=== PATIENT | male | born 1965 | race Caucasian/White ===

== ENCOUNTER 2020-12-30 09:56 | Inpatient (IN) ==
[2020-12-30 10:54] LABS: Basophils # 0.1 K/mcL (0.0-0.2); Basophils % 0.3 %; Eosinophils % 0.3 %; Hematocrit 50.6 % (37.5-50.1); Hemoglobin 16.2 g/dL (12.9-16.9); Immature Granulocytes % 0.8 % (0-4); Lymphocytes # 1.9 K/mcL (0.6-4.6); Lymphocytes % 13.5 %; Mean Corpuscular Hemoglobin 29.7 pg (28.0-33.3); Mean Corpuscular Volume 92.8 fL (83.0-100.0); Mean Platelet Volume 11.4 fL (9.4-12.4); Monocytes # 0.7 K/mcL (0.0-1.3); Neutrophils # 11.5 K/mcL (1.6-8.9); Platelet Count 257 K/mcL (140-400); Red Blood Count 5.45 M/mcL (4.19-5.50); Red Cell Distribution Width 15.1 % (11.5-14.5); Segmented Neutrophils % 80.1 %; White Blood Count 14.3 K/mcL (4.3-11.1)
[2020-12-30] MEDS ORDERED: Albuterol 2.5 MG/3 ML NEBULIZER IH ONE (11:06)
[2020-12-30] MEDS ORDERED: Ipratropium Neb 0.5 MG NEBULIZER IH ONE (11:07)
[2020-12-30] MEDS ORDERED: predniSONE 20 MG TABLET PO ONE (11:13)
[2020-12-30] MEDS ORDERED: Azithromycin 500 MG in 0.9 % Sodium Chloride 250 ML IVPB ONE (11:14)
[2020-12-30 11:16] LABS: BUN/Creatinine Ratio 17 (6-26); Blood Urea Nitrogen 18 mg/dL (6-20); Calcium 9.3 mg/dL (8.6-10.3); Carbon Dioxide 25 mEq/L (23-29); Chloride 102 mEq/L (98-107); Glucose 260 mg/dL (70-105); Osmolality,Calculated 295 (280-300); Potassium 4.2 mEq/L (3.5-5.1); Sodium 137 mEq/L (136-145); eGFR For African Americans > 60 (> 60); eGFR For Non-African Americans > 60 (> 60)
[2020-12-30] MEDS ORDERED: Aspirin 325 MG TABLET PO ONE (11:17)
[2020-12-30] MEDS ORDERED: cefTRIAXone 1,000 MG in 0.9 % Sodium Chloride Mini Bag 100 ML IVPB ONE (11:54)
[2020-12-30] MEDS ORDERED: Furosemide 40 MG/4 ML VIAL IVP ONE ×2 (11:54→21:19)
[2020-12-30] MEDS ORDERED: Nitroglycerin 0.4 MG TAB.SUBL SL ONE (12:33)
[2020-12-30] MEDS ORDERED: Naloxone 0.4 MG/ML INJ IVP PRN (13:17)
[2020-12-30] MEDS ORDERED: Ondansetron 4 MG/2 ML VIAL IVP PRN (13:23)
[2020-12-30 13:24] LABS: Influenza A PCR Negative (Negative); Influenza B PCR Negative (Negative); Resp. Syncytial Virus PCR Negative (Negative)
[2020-12-30 13:25] LABS: SARS-CoV-2 by PCR (In House) Negative (Negative)
[2020-12-30] MEDS ORDERED: Perflutren Lipid Microsphere 1.3 ML in 0.9 % Sodium Chloride 8.7 ML IVP PRN (14:37)
[2020-12-30] MEDS: Ipratropium/Albuterol Neb 3 ML IH SCH ×2 (16:40→21:44)
[2020-12-30] MEDS: *HR* Heparin 5,000 UNIT/ML VIAL SQ SCH (22:15)
[2020-12-31 01:42] LABS: Basophils % 0.1 %; Hematocrit 46.1 % (37.5-50.1); Hemoglobin 15.1 g/dL (12.9-16.9); Immature Granulocytes % 0.4 % (0-4); Lymphocytes # 1.1 K/mcL (0.6-4.6); Lymphocytes % 9.8 %; Mean Corpuscular HGB Conc 32.8 g/dL (31.6-35.5); Mean Corpuscular Hemoglobin 29.9 pg (28.0-33.3); Mean Corpuscular Volume 91.3 fL (83.0-100.0); Mean Platelet Volume 11.3 fL (9.4-12.4); Monocytes # 0.6 K/mcL (0.0-1.3); Monocytes % 5.2 %; Neutrophils # 9.5 K/mcL (1.6-8.9); Platelet Count 225 K/mcL (140-400); Red Blood Count 5.05 M/mcL (4.19-5.50); Segmented Neutrophils % 84.5 %; White Blood Count 11.3 K/mcL (4.3-11.1)
[2020-12-31 01:57] LABS: BUN/Creatinine Ratio 21 (6-26); Blood Urea Nitrogen 23 mg/dL (6-20); Calcium 8.8 mg/dL (8.6-10.3); Carbon Dioxide 22 mEq/L (23-29); Chloride 102 mEq/L (98-107); Glucose 251 mg/dL (70-105); Magnesium 1.9 mg/dL (1.6-2.6); Osmolality,Calculated 294 (280-300); Potassium 4.2 mEq/L (3.5-5.1); Sodium 136 mEq/L (136-145); eGFR For African Americans > 60 (> 60); eGFR For Non-African Americans > 60 (> 60)
[2020-12-31 01:58] LABS: Albumin 3.8 g/dL (3.5-5.7); Albumin/Globulin Ratio 1.3 (1.1-2.2); Bilirubin,Direct 0.2 mg/dL (0.0-0.2); Bilirubin,Indirect 0.8 mg/dL (0.0-1.0); Total Protein 6.8 g/dL (6.4-8.9)
[2020-12-31] MEDS: Ipratropium/Albuterol Neb 3 ML IH SCH ×4 (04:43→22:09)
[2020-12-31] MEDS: *HR* Heparin 5,000 UNIT/ML VIAL SQ SCH ×3 (05:08→21:38)
[2020-12-31] MEDS ORDERED: Furosemide 40 MG/4 ML VIAL IVP SCH (09:00)
[2020-12-31] MEDS: Azithromycin 500 MG in 0.9 % Sodium Chloride 250 ML IVPB SCH (11:04)
[2020-12-31] MEDS: predniSONE 20 MG TABLET PO SCH (11:04)
[2020-12-31] MEDS: cefTRIAXone 1,000 MG in 0.9 % Sodium Chloride Mini Bag 100 ML IVPB SCH (11:04)
[2020-12-31] MEDS: Nicotine 21 MG PATCH.TD24 TD SCH (11:05)
[2020-12-31] MEDS ORDERED: Furosemide 40 MG/4 ML VIAL IVP ONE (14:00)
[2020-12-31] MEDS: Aspirin 81 MG TAB.CHEW PO SCH (14:16)
[2020-12-31] MEDS ORDERED: carvediloL 6.25 MG TABLET PO SCH (17:00)
[2021-01-01] MEDS: Ipratropium/Albuterol Neb 3 ML IH SCH ×4 (04:50→20:59)
[2021-01-01] MEDS: *HR* Heparin 5,000 UNIT/ML VIAL SQ SCH ×3 (05:28→20:51)
[2021-01-01 08:10] LABS: Basophils % 0.3 %; Eosinophils % 0.2 %; Hematocrit 43.7 % (37.5-50.1); Immature Granulocytes % 0.6 % (0-4); Lymphocytes % 24.5 %; Mean Corpuscular Hemoglobin 29.5 pg (28.0-33.3); Mean Platelet Volume 11.3 fL (9.4-12.4); Monocytes % 8.4 %; Platelet Count 215 K/mcL (140-400); Red Blood Count 4.75 M/mcL (4.19-5.50); Red Cell Distribution Width 14.9 % (11.5-14.5); White Blood Count 12.1 K/mcL (4.3-11.1)
[2021-01-01 08:54] LABS: BUN/Creatinine Ratio 25 (6-26); Blood Urea Nitrogen 28 mg/dL (6-20); Calcium 8.5 mg/dL (8.6-10.3); Carbon Dioxide 27 mEq/L (23-29); Chloride 103 mEq/L (98-107); Glucose 147 mg/dL (70-105); Magnesium 2.2 mg/dL (1.6-2.6); Osmolality,Calculated 296 (280-300); Potassium 3.9 mEq/L (3.5-5.1); Sodium 139 mEq/L (136-145); eGFR For African Americans > 60 (> 60); eGFR For Non-African Americans > 60 (> 60)
[2021-01-01] MEDS: cefTRIAXone 1,000 MG in 0.9 % Sodium Chloride Mini Bag 100 ML IVPB SCH (09:18)
[2021-01-01] MEDS: Furosemide 40 MG/4 ML VIAL IVP SCH ×2 (09:18→20:51)
[2021-01-01] MEDS: Aspirin 81 MG TAB.CHEW PO SCH (09:18)
[2021-01-01] MEDS: predniSONE 20 MG TABLET PO SCH (09:18)
[2021-01-01] MEDS: Azithromycin 500 MG in 0.9 % Sodium Chloride 250 ML IVPB SCH (09:19)
[2021-01-01] MEDS: Nicotine 21 MG PATCH.TD24 TD SCH (09:25)
[2021-01-01] MEDS: carvediloL 6.25 MG TABLET PO SCH (18:48)
[2021-01-02] MEDS: Ipratropium/Albuterol Neb 3 ML IH SCH ×5 (04:37→20:46)
[2021-01-02] MEDS: *HR* Heparin 5,000 UNIT/ML VIAL SQ SCH ×3 (05:25→21:42)
[2021-01-02] MEDS: Nicotine 21 MG PATCH.TD24 TD SCH (08:30)
[2021-01-02] MEDS: Furosemide 40 MG TABLET PO SCH ×2 (08:31→16:09)
[2021-01-02] MEDS: Aspirin 81 MG TAB.CHEW PO SCH (08:31)
[2021-01-02] MEDS: predniSONE 20 MG TABLET PO SCH (08:31)
[2021-01-02] MEDS: carvediloL 6.25 MG TABLET PO SCH ×2 (08:32→16:09)
[2021-01-02] MEDS: cefTRIAXone 1,000 MG in 0.9 % Sodium Chloride Mini Bag 100 ML IVPB SCH (08:32)
[2021-01-02] MEDS ORDERED: lisinopriL 5 MG TABLET PO SCH (09:00)
[2021-01-02 09:33] LABS: Basophils % 0.4 %; Eosinophils # 0.1 K/mcL (0.0-0.6); Eosinophils % 0.6 %; Hematocrit 44.6 % (37.5-50.1); Hemoglobin 14.3 g/dL (12.9-16.9); Immature Granulocytes % 0.6 % (0-4); Lymphocytes # 3.2 K/mcL (0.6-4.6); Lymphocytes % 29.5 %; Mean Corpuscular HGB Conc 32.1 g/dL (31.6-35.5); Mean Corpuscular Hemoglobin 29.6 pg (28.0-33.3); Mean Corpuscular Volume 92.3 fL (83.0-100.0); Monocytes # 0.9 K/mcL (0.0-1.3); Monocytes % 8.4 %; Neutrophils # 6.6 K/mcL (1.6-8.9); Platelet Count 237 K/mcL (140-400); Red Blood Count 4.83 M/mcL (4.19-5.50); Segmented Neutrophils % 60.5 %; White Blood Count 10.9 K/mcL (4.3-11.1)
[2021-01-02] MEDS: Azithromycin 500 MG in 0.9 % Sodium Chloride 250 ML IVPB SCH (09:38)
[2021-01-02 10:29] LABS: BUN/Creatinine Ratio 28 (6-26); Blood Urea Nitrogen 29 mg/dL (6-20); Calcium 8.6 mg/dL (8.6-10.3); Carbon Dioxide 29 mEq/L (23-29); Chloride 103 mEq/L (98-107); Glucose 175 mg/dL (70-105); Magnesium 2.3 mg/dL (1.6-2.6); Osmolality,Calculated 298 (280-300); Potassium 3.6 mEq/L (3.5-5.1); Sodium 139 mEq/L (136-145); eGFR For African Americans > 60 (> 60); eGFR For Non-African Americans > 60 (> 60)
[2021-01-02] MEDS ORDERED: *HR* Midazolam HCl 2 MG/2 ML VIAL ONE (10:51)
[2021-01-02] MEDS ORDERED: *HR* FentaNYL (PF) 100 MCG/2 ML VIAL ONE (10:51)
[2021-01-02] MEDS ORDERED: *HR* Heparin 10,000 UNIT/10 ML VIAL ONE ×2 (10:52→11:09)
[2021-01-02] MEDS ORDERED: Nitroglycerin 1,000 MCG/5 ML VIAL IV ONE (10:52)
[2021-01-02] MEDS ORDERED: ISOVUE-370 200 ML INFUS..BTL ONE (10:52)
[2021-01-02] MEDS ORDERED: 0.9 % Sodium Chloride 2,000 ML ONE (10:52)
[2021-01-02] MEDS ORDERED: Heparin 1,000 UNITS/500 mL 500 ML ONE (10:52)
[2021-01-02] MEDS ORDERED: Furosemide 40 MG/4 ML VIAL IVP ONE (12:36)
[2021-01-03] MEDS: Ipratropium/Albuterol Neb 3 ML IH SCH ×2 (04:39→08:55)
[2021-01-03 05:41] LABS: BUN/Creatinine Ratio 28 (6-26); Blood Urea Nitrogen 29 mg/dL (6-20); Calcium 8.6 mg/dL (8.6-10.3); Carbon Dioxide 27 mEq/L (23-29); Chloride 102 mEq/L (98-107); Glucose 165 mg/dL (70-105); Magnesium 2.4 mg/dL (1.6-2.6); Osmolality,Calculated 292 (280-300); Potassium 3.9 mEq/L (3.5-5.1); Sodium 136 mEq/L (136-145); eGFR For African Americans > 60 (> 60); eGFR For Non-African Americans > 60 (> 60)
[2021-01-03] MEDS: *HR* Heparin 5,000 UNIT/ML VIAL SQ SCH (05:55)
[2021-01-03] MEDS: cefTRIAXone 1,000 MG in 0.9 % Sodium Chloride Mini Bag 100 ML IVPB SCH (08:24)
[2021-01-03] MEDS: Aspirin 81 MG TAB.CHEW PO SCH (08:28)
[2021-01-03] MEDS: carvediloL 6.25 MG TABLET PO SCH (08:28)
[2021-01-03] MEDS: Furosemide 40 MG TABLET PO SCH (08:28)
[2021-01-03] MEDS: predniSONE 20 MG TABLET PO SCH (08:28)
[2021-01-03] MEDS: Nicotine 21 MG PATCH.TD24 TD SCH (08:28)
[2021-01-03] MEDS ORDERED: lisinopriL 5 MG TABLET PO SCH (09:00)
[2021-01-03] MEDS: Azithromycin 500 MG in 0.9 % Sodium Chloride 250 ML IVPB SCH (09:58)
[2021-01-03 12:38] VITALS: BP 113/78; PULSE 84; TEMP 98; O2SAT 91
[2021-01-04] MEDS ORDERED: Furosemide 40 MG TABLET PO SCH (09:00)
== END 2021-01-03 14:30 | disposition home or self-care (01) | DRG 192 ==
LOC: EMEROOARM 09:56 → SUATTDRO 15:03 → 3NENU 15:03
PROVIDERS: ADMIT Family Medicine; ATTEND Hospitalist